=== PATIENT | female | born 1975 | race Caucasian/White ===

== ENCOUNTER 2018-10-10 09:48 | Outpatient (CLI) | payer OTHER ==
--- NOTE | 2018-10-10 11:56 | Diagnostic Imaging Report ---
WARREN WOLF [facility] [address] [facility] [address] [address] Report Submission Date: Oct 10, 2018 11:35:33 AM CDT Patient Study Name: KATHLEEN REYES Date: Oct 10, 2018 11:05:28 AM CDT Modality Type: DX Gender: F Description: L SPINE 4 VIEWS : 79 Institution: [facility] Physician: WARREN WOLF EXAMINATION: L SPINE 4 VIEWS HISTORY: chronic back pain COMPARISON: None FINDINGS: The image quality is poor. The vertebral bodies are normally aligned, including in flexion and extension. No acute fracture or compression deformity is identified. The L5-S1 intervertebral disc space is narrowed. No pars defect is identified on the oblique images. IMPRESSION: L5-S1 degenerative disc disease. Electronically signed on Oct 10, 2018 11:35:33 AM CDT by: Agustin DONOHUE
--- NOTE | 2018-10-17 08:20 | CONSULTATION REPORT ---
REFERRING PHYSICIAN: CONSULTING PHYSICIAN: Isidoro Laguna M.D. CHIEF COMPLAINT: Low back pain. HISTORY OF PRESENT ILLNESS: The patient is a 43-year-old female who presents for evaluation of chronic low back pain since 2013. She denies any trauma or specific inciting event at that time. She denies any lumbar spine surgery. She reports having had three interventional procedures which she states were epidurals in the past. Her first injection was in 2014 and she reports good pain relief for over two years. Her second injection was in 2016 and provided good pain relief for about nine months. Her third injection was in 2018 and did not provide any relief. She states all of these injections were performed by a pain physician in [place], [place]. She has had physical therapy most recently in May and June of 2017. She attended therapy at least once a week for about two months without any pain relief. She has seen a chiropractor several times in the past, most recently in 2018 without any pain relief. Low back pain is described as dull, aching, throbbing, stabbing in character, rated 7/10 intensity. Pain is located in the midline low back and bilateral lumbar paraspinal and sacral regions. She denies any pain radiation into the lower extremities. She denies any weakness, numbness or tingling in the lower extremities. She denies bowel or bladder incontinence. Pain is worse with bending, stooping, prolonged sitting or prolonged standing, with standing being worse than sitting. Pain is improved with rest and acjq-skp-ejgmhyg Tylenol. She states that she has had recent MRI in 2018. She does not have the radiology report or images for my review at todays visit, but she says she can get those for me at her next visit. She has tried several pain medications in the past, including tramadol as well as muscle relaxers, but she denies any pain relief from those medications, and she states that she prefers to avoid pain medications, if possible. PAST MEDICAL HISTORY: Obesity, low back pain. PAST SURGICAL HISTORY: None. SOCIAL HISTORY: The patient currently smokes about 10 cigarettes a day. She denies any illegal drug use. She denies alcohol use. REVIEW OF SYSTEMS: A 14-point review of systems was performed and was positive for low back pain as described in HPI above, and was negative for all other systems. For further details on past medical history, social history, family history and review of systems, please see the paper charts at [facility]. PHYSICAL EXAMINATION: VITALS: BP 144/90, pulse 75, respirations 18, temperature 97.9, oxygen saturation 99% on room air, weight 277. GENERAL: The patient is alert and oriented x 4, pleasant and cooperative. The patient does have obesity. HEENT: Pupils are equal and reactive to light and accommodation. Extraocular muscles intact. No gross abnormalities. CARDIOVASCULAR: Regular rate and rhythm. No murmurs, rubs or gallops. PULMONARY: Lungs are clear to auscultation bilaterally. ABDOMEN: Soft, nontender, nondistended. : Deferred. SKIN: No rashes or lesions identified. MUSCULOSKELETAL: Lumbar inspection shows no gross abnormalities. Lumbar spine range of motion is decreased in flexion and extension with pain at end range. There is positive pain with facet loading in extension and rotation. Positive tenderness to palpation at spinous processes, lumbar paraspinals and sacral sulci bilaterally. Negative seated slump and straight leg raise bilaterally, but do cause axial low back pain. NEUROLOGIC: Cranial nerves II-XII are grossly intact. No focal deficits. Deep tendon reflexes are 2/4 in bilateral patellar, medial hamstring and Achilles tendons. Manual muscle testing shows normal strengths in bilateral lower extremities with 5/5 hip flexion, hip abduction, knee flexion, knee extension, dorsiflexion, EHL extension and plantarflexion. Sensation to light touch is intact in bilateral lower extremities in all dermatomes symmetrically. Plantar reflexes are downgoing bilaterally. No clonus or fasciculations. ASSESSMENT: 1. Chronic low back pain. 2. Lumbar facet arthropathy. 3. Obesity. PLAN: 1. Lumbar spine x-rays including AP, lateral, oblique, flexion and extension views. 2. Patient to obtain MRI radiology report and images from recent MRI of lumbar spine done in 2018 and provide those to me for review at next follow-up visit. 3. Patient to return to clinic in two weeks for review of imaging studies and to develop interventional pain treatment plan. 4. Consider lumbar facet steroid injections pending review of imaging studies. Note: I spent over 40 minutes with this patient, of which greater than 50% was spent in counseling and education. CHARANJIT
== END 2018-10-10 11:03 | disposition home or self-care (01) ==
LOC: OUT 09:48
PROVIDERS: ATTEND Physical Medicine & Rehabilitation
DX: M54.5 Low back pain (principal); G89.29 Other chronic pain; M51.37 Other intervertebral disc degeneration, lumbosacral region; M12.88 Other specific arthropathies, not elsewhere classified, other specified site; E66.9 Obesity, unspecified
CPT/HCPCS: 72110; 99214

== ENCOUNTER 2018-10-24 15:26 | Outpatient (CLI) | payer OTHER ==
--- NOTE | 2018-10-27 15:02 | OP Clinic Progress Note ---
CHIEF COMPLAINT: Low back pain. HISTORY OF PRESENT ILLNESS: The patient is a 43-year-old female who returns for evaluation of chronic low back pain since 2013. She was seen for initial pain consult on 10/10/18. The plan at that visit was to obtain lumbar spine x-rays which were obtained. Also, the patient was asked to bring in the radiology report and images from her last MRI of the lumbar spine which was done in 2017. I reviewed both the x-rays and the MRI with the patient in detail today. The lumbar spine x-rays show L5-S1 degenerative disc disease and facet arthropathy at L4-5, L5-S1. The lumbar spine MRI shows disc protrusions at L4-5, L5-S1, retrolisthesis at L5-S1, lumbar facet arthropathy at L4-5 and L5-S1 without significant spinal canal or neural foraminal stenosis. The patient denies any new or worsening symptoms since last visit. The patient reports low back pain since 2013. She denies any trauma or specific inciting event at that time. She denies any lumbar spine surgery. She reports having had 3 interventional procedures which she states were epidurals in the past. Her first injection was in 2014 and she reports good pain relief for over 2 years. Her second injection was in 2016 and provided good pain relief for about 9 months. Her third injection was in 2016 or 2018 and did not provide any relief. She states that all of these injections were performed by a pain physician in [place], [place]. She has had physical therapy most recently in May and June of 2017. She attended therapy at least once a week for about 2 months without any pain relief. She has seen a chiropractor several times in the past, most recently in 2018 without any pain relief. Her low back pain is described as dull, aching, throbbing, stabbing in character, rated 7/10 in intensity. The pain is located in the midline, low back and bilateral lumbar paraspinal and sacral regions. She denies any pain radiation into the lower extremities. She denies any weakness, numbness or tingling in the lower extremities. She denies saddle anesthesia, bowel or bladder incontinence. The pain is worse with bending, stooping, prolonged sitting or prolonged standing, with standing being worse than sitting. The pain is improved with rest and knkh-cvl-oaldwwh Tylenol. She states that she has had recent MRI in 2018 although records show that it was in 2017. The patient has tried several pain medications in the past including tramadol as well as muscle relaxers but she denies any pain relief from those medications and she states that she prefers to avoid pain medications if possible. PAST MEDICAL HISTORY: Includes obesity and low back pain. PAST SURGICAL HISTORY: None. SOCIAL HISTORY: The patient currently smokes about 10 cigarettes a day. She denies any illegal drug use. She denies alcohol use. REVIEW OF SYSTEMS: A 14-point review of systems was performed and was positive for low back pain as described in HPI above and was negative for all other systems. For further details on the patients past medical history, social history, family history and review of systems, please see the paper charts at [facility]. PHYSICAL EXAMINATION: VITALS: Blood pressure is 81/41, pulse 80, respirations 16, oxygen saturation 96% on room air. GENERAL: The patient is alert and oriented x 4, pleasant and cooperative. The patient does have obesity. HEENT: Pupils are equal and reactive to light and accommodation. Extraocular muscles intact. No gross abnormalities. CARDIOVASCULAR: Regular rate and rhythm. No murmurs, rubs or gallops. PULMONARY: Lungs are clear to auscultation bilaterally. ABDOMEN: Soft, nontender, nondistended. : Deferred. SKIN: No rashes or lesions identified. MUSCULOSKELETAL: Lumbar inspection shows no gross abnormalities. Lumbar spine range of motion is decreased in flexion and extension with pain at end range. There is positive pain with facet loading in extension and rotation. Positive tenderness to palpation at spinous processes, lumbar paraspinals and sacral sulci bilaterally. Negative seated slump and straight leg raise bilaterally but do cause axial low back pain. NEUROLOGIC: Cranial nerves II-XII grossly intact. No focal deficits. Deep tendon reflexes are 2/4 in bilateral patellar, medial hamstring and Achilles tendons symmetrically. Manual muscle testing shows normal strength in bilateral lower extremities with 5/5 hip flexion, hip abduction, knee flexion, knee extension, dorsiflexion, EHL extension and plantar flexion. Sensation to light touch is intact in bilateral lower extremities and all dermatomes symmetrically. Plantar reflexes are downgoing bilaterally. No clonus or fasciculations. RADIOLOGY: Lumbar spine x-rays, dated 10/10/18: Impression: 1) L5-S1 degenerative disc disease. Findings: The image quality is poor. The vertebral bodies are normally aligned including in flexion and extension. No acute fracture or compression deformity is identified. The L5-S1 intervertebral disc space is narrowed. No pars defect is identified on the oblique images. MRI lumbar spine without contrast, 09/29/16: Impression: 1) Acquired spondylosis without spinal canal stenosis. 2) Disc protrusions at L4-5 and L5-S1. 3) Retrolisthesis at L5-S1. Findings: The conus medullaris and cauda equina are unremarkable. Negative for acute fracture. There is mild disc space narrowing and retrolisthesis at L5-S1 with degenerative endplate changes. L1-2: No stenosis. L2-3: No stenosis. L3-4: No stenosis. L4-5: There is a small left foraminal/far left lateral disc protrusion and moderate facet arthropathy without spinal canal stenosis or neural foraminal narrowing. L5-S1: There is a small diffuse disc bulge, small central right central disc protrusion and moderate facet arthropathy causing mild bilateral neural foraminal narrowing without spinal canal stenosis. ASSESSMENT: 1. Chronic low back pain. 2. Lumbar facet arthropathy at L4-5, L5-S1. 3. Disc protrusions at L4-5 and L5-S1 without significant spinal canal stenosis. 4. Retrolisthesis at L5-S1. 5. Mild bilateral neural foraminal narrowing without spinal canal stenosis at L5-S1. 6. Obesity. PLAN: 1. Scheduled bilateral L4-5, L5-S1 facet joint steroid injections for next available appointment. Will attempt to obtain insurance approval to perform these injections tomorrow while I am at [facility] but if insurance is not approved will need to schedule in 2 weeks when I next return to [facility]. 2. Consider physical therapy for treatment of low back pain following the facet joint steroid injections. PT would focus on active modalities and include lumbar spine range of motion and core strengthening and purpose to develop home exercise program. Passive modalities could also be tried including lumbar traction, trial in TENS unit. 3. I offered to prescribe prescription pain medications to the patient but she declined and states that she prefers not to take pain medications. 4. The patient is to follow up in the pain clinic 2-4 weeks after the lumbar facet injections. Isidoro Laguna M.D. [facility]/mab Job #[id number] CHARANJIT
== END 2018-10-24 15:28 ==
LOC: OUT 15:26
PROVIDERS: ATTEND Physical Medicine & Rehabilitation
DX: M46.96 Unspecified inflammatory spondylopathy, lumbar region (principal); M51.26 Other intervertebral disc displacement, lumbar region; M43.16 Spondylolisthesis, lumbar region; M99.53 Intervertebral disc stenosis of neural canal of lumbar region; E66.9 Obesity, unspecified
CPT/HCPCS: 99214

== ENCOUNTER 2019-02-01 08:47 | Outpatient (CLI) | payer OTHER ==
--- NOTE | 2019-02-01 11:02 | Diagnostic Imaging Report ---
TARI ORDAZ [facility] [address] [facility] [address] [place], [place]. [address] Report Submission Date: Feb 01, 2019 10:56:44 AM CDT Patient Study Name: KATHLEEN REYES Date: Feb 01, 2019 9:42:49 AM CDT Modality Type: DX Gender: F Description: AC JOINTS W/W/O WEIGHTS : 79 Institution: [facility] Physician: TARI ORDAZ Exam: AC joint study. History: Pain. AP views of the acromioclavicular joints are obtained with and without weights. No acute fracture or dislocation is seen. No bony erosions are seen. There is mild asymmetric widening of the right AC joint noted when compared to the left. No increase in widening with weights in the right AC joint is noted. Impression: Mild widening of the right acromioclavicular joint as compared to the left is noted. However no increase in the width of this joint is noted with the patient bearing Weights. MRI may be beneficial to further evaluate. Electronically signed on Feb 01, 2019 10:56:44 AM CDT by: Matt DONOHUE
--- NOTE | 2019-02-02 15:53 | OP Clinic Progress Note ---
DATE OF VISIT: 02/01/2019 CHIEF COMPLAINT: Low back pain. HISTORY OF PRESENT ILLNESS: Barbara is a 43-year-old female patient of Dr. Laguna, is here for followup. She continues to have low back pain that is constant, dull, aching, throbbing and stabbing in character. Her pain is located in her mid low back and in her SI joint regions. She denies any radiation into her lower extremities. She denies any lower extremity numbness, tingling or weakness. She also denies any saddle anesthesias, bowel or bladder incontinence. Her pain is worsened with bending, sitting, prolonged sitting or prolonged standing with standing being worse than sitting. Her pain is improved with rest and isdx-qrs-uwkzwzy Tylenol. She has had increased difficulty with sleep related to her pain. The patient is also having some work related issues even though she has FMLA for her low back pain. She is concerned about losing her job. The patient had a bilateral L4-5, L5-S1 facet joint injection on 11/28/[address] Laguna. Prior to that procedure, she tells me her pain was an 8-9/10. After her pain immediately improved down to a 1/10 and lasted for approximately two days. She is ready to proceed with radiofrequency ablation. PAST MEDICAL HISTORY: Includes obesity, depression and low back pain. PAST SURGICAL HISTORY: None. SOCIAL HISTORY: The patient quit smoking approximately five years ago. She denies any illegal drug use. She denies any alcohol use. REVIEW OF SYSTEMS: A 14-point review of systems was performed and was positive for low back pain. All other systems were negative. For further details on the patient's past medical history, social history and family history and review of systems, please see the paper charts at [facility] in [place]. OBJECTIVE: General: This is an obese female patient presenting in no acute distress. Vital Signs: The patient is 5 feet 9 inches tall, weighs 281 pounds, which is stable from her last visit. Temperature was 97, pulse 80, respiratory rate 18, blood pressure 134/69 with SAO2 of 99% on room air. The patient is rating her pain at 2-3/10 today. Psych: She is alert and oriented x3. She is calm, pleasant and cooperative. She is tearful at times during the clinic visit today. HEENT: Normocephalic and atraumatic. Sclerae clear. Musculoskeletal: The patient has tenderness to palpation over the bilateral L3- 4, L4-5 and L5-S1 facet joints, worse over L4-5 and L5-S1. She also has tenderness to palpation over the lower lumbar paraspinals and bilateral S1 joints. Neuro: Cranial nerves II through XII are grossly intact. The patient does walk with the slightly antalgic gait. ASSESSMENT: 1. Chronic low back pain. 2. Lumbar facet arthropathy at L4-5, L5-S1. 3. Disc protrusion at L4-5 and L5-S1 without significant spinal canal stenosis. 4. Retrolisthesis at L5-S1. 5. Mild bilateral neuroforaminal narrowing without spinal canal stenosis at L5- S1. 6. Obesity. 7. Left shoulder pain. PLAN: 1. Today, I have ordered radiofrequency ablation of the bilateral L4-5 and L5-S1 facets with Dr. Laguna. I did discuss with the patient that her insurance may require second set of facet joint injections, however, we will try to get it prior auth with just one set. She verbalizes understanding of this. 2. She will need a preop appointment with me for the radiofrequency ablation. 3. At last appointment, Dr. Laguna ordered left AC joint x-rays, which we will get today as they have not been done up into this point. 4. I have prescribed the baclofen 20 mg one p.o. q.h.s. #30 with the two refills. 5. I did discuss in length with the patient the weight loss would help her overall pain symptoms, specifically her back. I did discuss the laparoscopic gastric sleeve procedure and we will readdress this in upcoming visits and see if she is interested at that time. 6. The patient is to follow up in one month or sooner if needed. The patient did verbalize understanding and agreed to the current treatment plan. XOCHILT Boldenurse Practitioner (Dictated/not signed) /[employer] [id number] /mab cc: Rolan Hodgson MD MTDD
== END 2019-02-01 09:30 ==
LOC: OUT 08:47
PROVIDERS: ATTEND Nurse Practitioner Adult Health
DX: M12.88 Other specific arthropathies, not elsewhere classified, other specified site (principal)
CPT/HCPCS: 73050; 99214

== ENCOUNTER 2019-03-01 14:26 | Outpatient (CLI) | payer OTHER ==
[2019-03-01 16:24] LABS: BASOPHILS % 0.5 % (0.0-1.5); NEUTROPHILS # 6.1 # k/uL (1.4-7.7)
[2019-03-01 16:57] LABS: eGFR (Non-African) > 60
== END 2019-03-01 14:55 ==
LOC: OUT 14:26
PROVIDERS: ATTEND Nurse Practitioner Adult Health
DX: M54.5 Low back pain (principal); M46.96 Unspecified inflammatory spondylopathy, lumbar region
CPT/HCPCS: 36415; 80053; 85025; 88148; 99202; G0143

== ENCOUNTER 2019-03-13 10:20 | Day surgery (SDC) | payer OTHER ==
[~2019-03-13 10:20] MED LIST: BUPIV. HCL 0.5% (5MG/ML)/EPI. (1:200,000) PF 30 ML VIAL IJ ONE; LIDOCAINE HCL 1% PF 300MG/30ML VIAL ONE; MIDAZOLAM HCL 2 MG/2 ML VIAL ONE; fentaNYL CITRATE/PF 100 MCG/2 ML INJ. ONE
[2019-03-13] MEDS ORDERED: oxyCODONE/ACETAMINOPHEN 5/325 TABLET PO ONE (15:27)
== END 2019-03-13 16:00 | disposition home or self-care (01) ==
LOC: OPSURG 10:20
PROVIDERS: ATTEND Physical Medicine & Rehabilitation
DX: M47.817 Spondylosis without myelopathy or radiculopathy, lumbosacral region (principal)
CPT/HCPCS: 64635; 64636; J2001; J2250; J3010; A9270-GY

== ENCOUNTER 2019-04-10 13:51 | Outpatient (CLI) | payer OTHER ==
--- NOTE | 2019-05-03 16:02 | OP Clinic Progress Note ---
DATE OF VISIT: 04/10/2019 CHIEF COMPLAINT: Low back pain. HISTORY OF PRESENT ILLNESS: Ms. Lopez is a 44-year-old female patient of Dr. Laguna's here for followup of low back pain. The patient had radiofrequency ablation of the bilateral L4-5 and L5-S1 facets on March 13, 2019. The patient is telling me that she is noticing slight improvement in her pain symptoms. She has fewer bad pain days. 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 I did encourage the patient to monitor her symptoms as we are only about four weeks out from the procedure and she should continue to see improvement in her pain symptoms and functionality. She denies any other changes in her medical history or symptoms. OBJECTIVE: General: This is an obese female patient presenting in [facility]. Vital Signs: She is 5 feet 9 inches tall. Weighs 285 pounds. Temperature is 97.2, pulse 78, respiratory rate 20, blood pressure 152/80 with an SAO2 of 98% on room air. She is rating her pain a 6/10 today. Psych: She is alert and oriented x3. She is calm, pleasant and cooperative. HEENT: She is normocephalic and atraumatic. Pupils are equal and round without miosis. Sclerae clear. Musculoskeletal: The patient remains mildly tender to palpation over the bilateral L4-5 and L5-S1 levels. Neuro: Cranial nerves II through XII are grossly intact. The patient walks with a steady gait. ASSESSMENT: 1. Low back pain. 2. Lumbar facet arthrosis. 3. Obesity. PLAN: 1. The patient is to continue home exercise program for her low back pain symptoms. 2. She is to continue to monitor her improvement in pain symptoms and functionality. 3. I did discuss that weight loss would likely improve her overall health as well as likely improve her pain symptoms. We had previously discussed our bariatric program and the possibility of referral to our bariatric clinic. The patient is not quite ready to do this, however is willing to discuss that at a later date if she is unable to lose weight on her own. 4. The patient is to follow up in one month or sooner if needed. The patient verbalizes understanding and agrees with the current treatment plan. XOCHILT Boldenurse Practitioner /[employer] [id number] Job #[id number] cjd MTDD
== END 2019-04-10 14:51 ==
LOC: OUT 13:51
PROVIDERS: ATTEND Nurse Practitioner Adult Health
DX: M47.816 Spondylosis without myelopathy or radiculopathy, lumbar region (principal); E66.9 Obesity, unspecified
CPT/HCPCS: 99213; G0463

== ENCOUNTER 2019-04-11 08:25 | Outpatient (CLI) | payer OTHER ==
[2019-04-19 09:58] LABS: BASOPHILS % 0.5 % (0.0-1.5); NEUTROPHILS # 5.1 # k/uL (1.4-7.7); eGFR (Non-African) > 60
== END 2019-04-11 08:30 | disposition home or self-care (01) ==
LOC: LAB 08:25
PROVIDERS: ATTEND Nurse Practitioner Family
DX: F52.0 Hypoactive sexual desire disorder (principal); F32.9 Major depressive disorder, single episode, unspecified; R53.83 Other fatigue; R63.5 Abnormal weight gain
CPT/HCPCS: 36415; 80053; 82670; 83001; 83002; 84144; 84146; 84439; 84443; 84481; 85025